=== PATIENT | male | born 1950 | race Two or more races ===

== ENCOUNTER 2024-07-27 11:25 | Outpatient (CLI) | payer MEDICARE, MEDICAID ==
[~2024-07-27 11:25] MED LIST: iohexol 300mg/ml 100ml inj. ONE
--- NOTE | 2024-07-27 13:51 | RADIOLOGY REPORT ---
CLINICAL INFORMATION: 74 years old, Male; PERITONEAL ABSCESS. TECHNIQUE: Axial CT images of the abdomen and pelvis were obtained without IV contrast. Coronal and s agittal reformatted images were obtained, reviewed, and stored. Evaluation of the parenchymal organs is limited without IV contrast. Evaluation of the bowel and mesentery is limited without oral contras t. All CT scans at this medical facility are performed using dose modulation techniques as appropriat e to a performed exam including the following: Automated exposure control was utilized; adjustment of the MA and/or KV according to patient size; and use of iterative reconstruction technique. CTDIvol = 26.21 mGy DLP = 1290.23 mGy-cm COMPARISON: None provided at the time of dictation. FINDINGS: Lung bases: Small to moderate right and small left pleural effusions with overlying atelectasis. Mild interlobular septal thickening in the lung bases. Liver: Hepatic steatosis. Biliary: Surgical clips seen in the gallbladder fossa. There is a small fluid-filled structure of the gallbladder fossa measuring up to 3.9 x 1.0 cm, possibly postoperative collection. Common bile duct stent in place. No biliary ductal dilatation. Spleen: A fluid density collection adjacent to the posterior superior aspect of the spleen with assoc iated calcification, measuring up to 3 cm in greatest dimension, appears to be subcapsular. Small lu unt of adjacent free fluid. Pancreas: Moderate atrophy of the body of the pancreas. Adrenal glands: Unremarkable. No mass. Kidneys: No hydronephrosis. No renal or ureteral calculi. Aorta/Vascular: Moderate atherosclerotic calcification. No abdominal aortic aneurysm. IVC filter in p lace. Retroperitoneum: No mass or lymphadenopathy. Bowel/mesentery: There are mildly distended fluid-filled small bowel loops. There are multiple surgic al clips and suture material adjacent to bowel loops in the ventral aspect of the peritoneum. Possibl e adhesions of bowel loops along the ventral aspect of the abdominal wall. There is a lobulated fluid -filled structure in the ventral aspect of the abdomen adjacent to large and small bowel loops and ab utting the ventral abdominal wall, measuring up to 7.5 cm in greatest AP dimension, 7.6 cm in greates t transverse dimension, 4.9 cm in craniocaudal dimension, possibly contiguous with adjacent small bow el loops, although difficult to delineate bowel loops in this location. The structure demonstrates mi ld mural enhancement to a greater extent than adjacent bowel loops. Small locules of gas are seen wit hin this structure. Appendix is not visualized. Pelvic organs: Enlarged prostate with impression on the bladder base. Bladder: Circumferential thickening of the bladder wall with mild adjacent stranding. Abdominal wall: Diastasis of the rectus abdominis muscles with bowel loops extending into the area of diastasis Bones: No acute fracture or suspicious intraosseous lesion. IMPRESSION: 1. Mildly distended fluid-filled small bowel loops, may be seen with ileus or enteritis in the approp riate clinical setting. Areas of partial small bowel obstruction not excluded. 2. Lobulated fluid-filled structure in the central anterior aspect of the abdomen demonstrating mildl y increased mural enhancement. Given the adjacent postsurgical changes, this may be a focally distend ed loop of bowel, although not well delineated on this exam without GI contrast. Alternatively, this could be a complex fluid collection / abscess given the indication for the study being peritoneal abs cess. Correlation with clinical findings prior imaging is needed to further characterize. CT with GI contrast could also be considered. 3. Suspected adhesions with large and small bowel loops abutting remaining closely approximated to th e ventral abdominal wall adjacent to the Postsurgical changes. 4. Diastasis of the rectus abdominis muscles. 5. Bladder wall thickening and adjacent stranding. Correlate clinically for cystitis. 6. Enlarged prostate. 7. Bilateral pleural effusions, right greater than left. 8. Focal collection along the posterior superior spleen, appears to be subcapsular associated calcifi cation. 9. Additional findings as detailed above.
== END 2024-07-27 23:59 | disposition home or self-care (01) ==
LOC: 64 CT 11:25
PROVIDERS: ATTEND Nurse Practitioner
DX: K76.0 Fatty (change of) liver, not elsewhere classified (principal); K65.1 Peritoneal abscess; K86.89 Other specified diseases of pancreas; N40.0 Benign prostatic hyperplasia without lower urinary tract symptoms; Q79.59 Other congenital malformations of abdominal wall
CPT/HCPCS: 74177; Q9967